=== PATIENT | female | born 2000 | race Caucasian/White ===

== ENCOUNTER 2025-07-03 15:29 | Emergency (ER) | payer OTHER, SELFPAY ==
[2025-07-03 15:38] VITALS: BP 157/99
[2025-07-03 16:17] LABS: Hematocrit 44.7 % (37.0-47.0); Hemoglobin 15.6 g/dL (12.0-16.0); Mean Corp Hgb Conc. 34.9 g/dL (33.0-37.0); Mean Corpuscular Volume 94.3 fL (81.0-99.0); Nucleated Red Blood Cells % 0 %; Platelet Count 190 10^3/uL (130-400); Red Cell Dist. Width 12.1 % (11.5-14.5)
[2025-07-03 16:28] LABS: ALT (SGPT) 16 U/L (0-35); AST (SGOT) 26 U/L (14-36); Albumin 5.3 g/dl (3.5-5.0); Alkaline Phosphatase 109 U/L (38-126); Blood Urea Nitrogen 12 mg/dl (7-17); Calcium 10.4 mg/dl (8.4-10.2); Carbon Dioxide 23 mmol/L (22-30); Chloride 105 mmol/L (98-107); Glucose 82 mg/dl (70-99); Lipase 92 U/L (23-300); Potassium 3.7 mmol/L (3.5-5.1); Sodium 140 mmol/L (135-145); Total Protein 8.5 g/dl (6.3-8.2); eGFR > 60.00
[2025-07-03 19:18] VITALS: BP 134/95
--- NOTE | 2025-07-03 19:25 | ED.GENMED ---
History of Present Illness
General
Chief Complaint: Abdominal Symptoms
Source: patient and records
Exam Limitations: none
Time Seen by Provider: 07/03/25 19:13
Nursing documentation reviewed up to this point in time: agreed with
History of Present Illness
History of Present Illness:
24-year-old female with past medical history of mitral valve prolapse, scoliosis status post spinal fusion who presents to the emergency department with her mother for evaluation of GI symptoms and palpitations. Patient reports that she is from
[place] and flew back home for a wedding this weekend. She says that she was drinking at the wedding. Over the next day she noticed that she was having nausea and intense food aversion; she says she did have 1 episode of vomiting the morning
after the wedding. She says that she was supposed to get on a flight home to [place] but started having what she describes as 'a panic attack' where she had palpitations and severe anxiety and so her mother picked her up and she did not get on
the airplane. She has been resting at home drinking plenty of fluids over the past few days but says that she still has significant food aversion, nausea, bloating and has had occasional palpitations and feels very shaky. Came to the ER for
assessment.
Past History
Past History
ED Past Surgical History: Orthopedic
Social History
Tobacco: Non-smoker
Alcohol: None
Drug: None
Personal: Single
Living: with family
Review of Systems
Review of Systems
All Other Systems: ROS reviewed and negative except as documented in HPI and ROS
Constitutional: Denies fever
Respiratory: Denies trouble breathing
Cardiac: Reports palpitations; Denies chest pain
ABD/GI: Reports abdominal pain, nausea, vomiting and anorexia; Denies diarrhea
: Denies flank pain
Musculoskeletal: Denies neck pain or back pain
Neurological: Reports other (Shakiness/tremulousness); Denies headache
Phy Exam
Physical Exam
Physical Exam:
General: Awake, alert, oriented x3; no acute distress
Head: Normocephalic, atraumatic
Eyes: Conjunctiva normal, sclera anicteric
Throat: Airway intact, handling secretions
Neck: Trachea midline, supple without meningismus
Lungs: Clear to auscultation bilaterally, no wheezing, rales, rhonchi
Heart: Regular rate and rhythm, no murmurs, gallops, or rubs
Abd: Soft, non distended, nontender
Neuro: Grossly intact
Skin: no rash
Extremities: No edema in extremities, equal pulses in all extremities
Scores
Heart Failure Risk
Heart Failure Risk Score: Not Applicable
Heart Score for Chest Pain Patients
STEMI patient?: Not applicable
Withdrawal Assessment of Alcohol
Withdrawal Assessment Completed?: Not applicable
Course
Orders/Labs/Results
Orders:
Orders
07/03/25 15:30
EKG [Electrocardiogram (*1)] Urgent
Reason for Study: Palpitations
07/03/25 15:31
EKG- Treatment ONCE
07/03/25 15:54
CBC/With Diff [Complete Blood Count/With Diff] Urgent
CMP [Comprehensive Metabolic Panel] Urgent
Lipase Urgent
07/03/25 19:23
Test Result ONCE
US Abdomen Complete/Upper Urgent
Comment:
Reason For Exam: nausea, abd discomfort
07/03/25 20:18
HCG, Serum Qualitative Screen Urgent
TSH Reflex To Free T4 Urgent
Troponin I Urgent
07/03/25 21:34
Urinalysis Reflex To Culture Urgent
Date Specimen was Collected: 07/03/25
Time Specimen was Collected: 21:25
Urine Microscopic Reflex Cult Urgent
Urine Culture Urgent
JASON Source: U
Specimen Description:
Date Specimen was Collected: 07/03/25
Time Specimen was Collected: 21:25
07/03/25 22:12
Pantoprazole [Protonix IV] 40 mg IV NOW STA
Abnormal Lab Results
07/03/25 07/03/25
15:54 21:34
MCH 32.9 H pg
(27.0-31.0)
Absolute Monos (auto) 0.8 H 10^3/uL
(0.1-0.6)
Calcium 10.4 H mg/dl
(8.4-10.2)
Total Protein 8.5 H g/dl
(6.3-8.2)
Albumin 5.3 H g/dl
(3.5-5.0)
Urine Ketones 2+ A
(Negative)
Leukocyte Esterase Rfl 1+ A
(Negative)
Urine Bacteria (Reflex) Few A
(Negative)
Urine Albumin (Reflex) 1+ A
(Neg - Trace)
07/03/25 15:54
07/03/25 15:54
Vital Signs
Initial and Last Documented VS:
Initial Vital Signs
Temp Pulse Resp BP Pulse Ox
36.8 C 89 15 157/99 100
07/03/25 15:38 07/03/25 15:38 07/03/25 15:38 07/03/25 15:38 07/03/25 15:38
Last Documented Vital Signs
Temp Pulse Resp BP Pulse Ox
36.8 C 89 15 157/99 100
07/03/25 15:38 07/03/25 15:38 07/03/25 15:38 07/03/25 15:38 07/03/25 19:30
MDM/Problems Addressed
Differential Diagnosis Includes:
Food aversion/nausea: Gastritis/PUD, pancreatitis, cholelithiasis, hepatitis, anxiety
Palpitations: Dysrhythmia, hyperthyroidism, electrolyte abnormality, dehydration, anxiety
MDM/Problems Addressed:
24-year-old female presents for evaluation of food aversion with nausea, abdominal bloating palpitations and anxiety over the past few days since a wedding recently. Hypertensive but otherwise normal vitals. Physical exam as above. EKG shows
lateral T wave inversions which are identical to prior EKG. Plan to place an IV check labs including a CBC and a CMP. Check lipase. Will check thyroid studies and hCG. Will check troponin. Check urinalysis. Will check abdominal ultrasound.
Will monitor closely reassess after the above.
Labs reviewed: CBC and CMP no clinically significant abnormalities�LFTs notably normal. Troponin undetectable. Lipase normal. Thyroid studies normal. hCG negative. Urinalysis appears contaminated�few bacteria and many squamous cells but no
pyuria to suggest an acute infection with no nitrites. Her abdominal ultrasound was negative for any acute abnormalities. Suspect symptoms may be due to gastritis after alcohol use at . That she is stable for discharge can trial PPI
follow-up with her primary doctor as an outpatient. Patient and family feel comfortable with this plan. All questions answered.
*Radiology
Radiology exam reviewed: radiology read reviewed
*Pulse Oximetry
SaO2: 100
Oxygen Mode of Delivery: Room air
Patient hypoxic: no (100%)
*EKG
Interpreted by ED Provider?: Yes
Comparison EKG: no changes
Heart Rate: 53
Rate: bradycardiac
Rhythm: sinus
[place]: right axis deviation
Interval: normal interval
QRS Pattern: normal QRS
Ischemia: T-wave inversion
*Critical Care Note
Total Time (30-74mins, 75-104mins- exclusive of procedures): Not Applicable
Data Reviewed
Review of Other/Old Records Reveals: Labs, Records and Radiology Studies
Source: patient and family
ED Attending Note
-
Portions of this chart may have been created with voice recognition software.� Occasional wrong word or��sound alike� substitutions may have occurred due to the inherent limitations of voice recognition software.
Discharge Plan
Departure
Patient Disposition: Home (Routine Discharge)
Date of Disposition: 07/03/25
Time of Disposition: 22:10
Patient with high blood pressure during this ER visit?: Yes
Discharge Problem:
Palpitations, Food aversion
Instructions: [place] Diet, Palpitations (DC)
Prescriptions:
New
pantoprazole [Protonix] 40 mg tablet,delayed release (DR/EC)
40 mg PO DAILY Qty: 30 0RF
No Action
docusate sodium 100 MG capsule
100 mg PO PRN PRN (Reason: constipation)
oxycodone 5 MG tablet
10 mg PO Q4HPRN PRN (Reason: pain)
Valium:
1 tab PO PRN PRN (Reason: back spasms)
acetaminophen 325 MG tablet
325 mg PO Q4HPRN PRN (Reason: pain)
polyethylene glycol 3350 17 GRAMS powder in packet
17 grams PO DAILY
Referrals:
PRIVATE,PHYSICIAN [Family Provider, Internal Medicine]
Activity Restrictions/Additional Instructions:
Thank you for visiting the Emergency Department at [facility].
1. Please schedule a follow up appointment as directed. Call first thing tomorrow morning to make an appointment.
2. If indicated, please take your medications as instructed and indicated on discharge paperwork.
3. If any of your symptoms do not improve, or persist, or become more severe within 6-12 hours, please return to the emergency department for further care.
4. Please return to the emergency department if you develop a headache, neck pain/stiffness, fever greater than 100.4F, chest pain, shortness of breath, persistent nausea, vomiting, slurred speech, difficulty walking, numbness/tingling, weakness,
signs of infection or any other symptoms that are worrisome to you.
Please call [phone] if you have any questions.
Interventions
Interventions:
*Risk Screen - Suicide Last Done: 07/03/25 15:38
*General Assessment Last Done: 07/03/25 15:38
*Neglect/Abuse Screening Last Done: 07/03/25 15:38
*ED COVID-19 Vaccine History Last Done: 07/03/25 15:38
Discharge Date and Time
Print Language: PAKIST[place]
[2025-07-03 20:19] VITALS: BP 129/86
[2025-07-03 20:52] LABS: HCG, Serum Qualitative Screen Negative
[2025-07-03 21:00] VITALS: BP 109/81
[2025-07-03 21:00] LABS: Troponin I < 0.012 ng/ml
[2025-07-03 21:40] LABS: Urine Character Cloudy (Clear)
[2025-07-03 21:52] LABS: Urine Red Blood Cell 0-2 /HPF (0-2); Urine Squamous Cell 16-20 /LPF (Few)
[2025-07-03] MEDS: PROTONIX IV 40 MG IV (22:24)
== END 2025-07-03 22:43 | disposition home or self-care (01) ==
LOC: EMR 15:29
PROVIDERS: Student in an Organized Health Care Education/Training Program; EMERGENCY PHYSICIAN Emergency Medicine
DX: R00.2 Palpitations (principal); R63.8 Other symptoms and signs concerning food and fluid intake; R11.0 Nausea; R14.0 Abdominal distension (gaseous); I34.1 Nonrheumatic mitral (valve) prolapse; Z98.1 Arthrodesis status
CPT/HCPCS: 96374; 99284; 76700; 80053; 81003; 81015; 83690; 84443; 84484; 84703; 85025; 87086; 93005